=== PATIENT | female | born 1960 | race Caucasian/White ===

== ENCOUNTER → 2021-04-28 | Day surgery (SDC) | payer OTHER ==
[~2021-04-28] VITALS: Ht 167.6 cm; Wt 77.6 kg
[~2021-04-28] MED LIST: BIAXIN500 MG PO; BREO ELLIPTA 11 EACH INH; CLARITIN10 MG PO; ESCITALOPRAM OX20 MG PO; FLEXERIL10 MG PO; GABAPENTIN600 MG PO; IBUPROFEN800 M1 PO; LAMOTRIGINE100 MG PO; LISINOPRIL 20MG20 MG PO; METFORMIN HCL500 MG PO; METOPROLOL SUCC25 MG PO; NORCO 5-325 TA1 EACH PO; NORVASC5 MG PO; PRILOSEC20 MG PO; VENTOLIN HFA IN18 GM INH
[2021-04-28 10:16] LABS: HCT 39.1 % (37.0-47.0); HGB 13.2 g/dl (12.5-16.0); MCH 31.6 pg (25.0-31.0); MCHC 33.8 g/dL (32.0-36.0); MCV 93.5 fL (78.0-100.0); MPV 9.6 fL (6.0-9.5); RBC 4.18 M/uL (4.20-5.40); RDW 14.5 % (11.5-14.0); WBC 11.8 K/uL (4.0-10.5)
[2021-04-28 10:32] LABS: ALBUMIN 3.2 g/dL (3.4-5.0); BILIRUBIN - TOTAL 0.3 mg/dL (0.2-1.0); CREATININE 0.62 mg/dL (0.51-0.95); GLOBULIN (CALCULATION) 3.1 g/dL; POTASSIUM 3.8 mmol/L (3.5-5.1); TOTAL PROTEIN 6.3 g/dL (6.4-8.2)
== END | disposition home or self-care (01) ==
LOC: FAS 08:21
PROVIDERS: Surgery
DX: K29.80 Duodenitis without bleeding (principal); K31.A0 Gastric intestinal metaplasia, unspecified; K31.9 Disease of stomach and duodenum, unspecified; K29.60 Other gastritis without bleeding; K21.9 Gastro-esophageal reflux disease without esophagitis; R63.0 Anorexia; R19.4 Change in bowel habit; R63.4 Abnormal weight loss; E78.5 Hyperlipidemia, unspecified; I10 Essential (primary) hypertension; J44.9 Chronic obstructive pulmonary disease, unspecified; Z72.0 Tobacco use; Z88.5 Allergy status to narcotic agent; Z79.82 Long term (current) use of aspirin
CPT/HCPCS: 36415; 80053; J2704; J7120

== ENCOUNTER → 2021-05-26 | Day surgery (SDC) | payer OTHER ==
[~2021-05-26] VITALS: Ht 167.6 cm; Wt 78.5 kg
[~2021-05-26] MED LIST changes: +PHENERGAN25 M1 PO
[2021-05-26 08:03] LABS: HGB 13.2 g/dl (12.5-16.0); MCH 32.6 pg (25.0-31.0); MCHC 34.7 g/dL (32.0-36.0); MCV 93.8 fL (78.0-100.0); MPV 9.2 fL (6.0-9.5); RBC 4.05 M/uL (4.20-5.40); RDW 13.9 % (11.5-14.0); WBC 11.8 K/uL (4.0-10.5)
[2021-05-26 08:50] LABS: ALBUMIN 3.4 g/dL (3.4-5.0); BILIRUBIN - TOTAL 0.3 mg/dL (0.2-1.0); BUN/CREAT RATIO (CALC) 13.2 RATIO; CREATININE 0.53 mg/dL (0.51-0.95); GLOBULIN (CALCULATION) 3.4 g/dL; POTASSIUM 4.1 mmol/L (3.5-5.1); TOTAL PROTEIN 6.8 g/dL (6.4-8.2)
== END | disposition home or self-care (01) ==
LOC: FAS 07:20
PROVIDERS: Surgery
DX: K81.1 Chronic cholecystitis (principal); R68.89 Other general symptoms and signs; K82.8 Other specified diseases of gallbladder; E78.5 Hyperlipidemia, unspecified; I10 Essential (primary) hypertension; J44.9 Chronic obstructive pulmonary disease, unspecified; E11.9 Type 2 diabetes mellitus without complications; Z72.0 Tobacco use; Z88.5 Allergy status to narcotic agent; Z79.82 Long term (current) use of aspirin
CPT/HCPCS: 36415; 74300; 80053; 82962; C1758; J1100; J1170; J2250; J2405; J2704; J2710; J3010; J7120; Q9967